=== PATIENT | male | born 1995 | race Caucasian/White ===

== ENCOUNTER 2017-12-24 03:01 | Emergency (ER) | payer SELFPAY ==
[~2017-12-24] VITALS: Ht 185.4 cm; Wt 77.0 kg
[2017-12-24 03:07] VITALS: BP 133/74; PULSE 95; RESP 18; TEMP 98.8; O2SAT 97
--- NOTE | 2017-12-24 04:12 | PD ---
HPI Chief Complaint: Edema Time Seen by Provider: 03:58 Travel History International Travel<30 days: No Contact w/Intl Traveler<30days: No Traveled to known affect area: No History of Present Illness HPI The patient is a 22-year-old male that complains of right ankle and right foot swelling for one day. He states he had a compound fracture of that ankle and foot years ago and he has hardware in the joint. He states that foot is always been fragile but it is never been swollen like this. He denies any injury. 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 In fact, he has not done any work in several months. He states he has a pain of 7/10 and sharp, throbbing pain. PFSH Past Medical History Hx Anticoagulant Therapy: No ADHD: No Autoimmune Disease: No Cancer: No Cardiovascular Problems: No Chemotherapy: No Cerebrovascular Accident: No Developmental Delay: No Diabetes: No Diminished Hearing: No Musculoskeletal: No Neurologic: No Psychiatric: Yes (ADHD) Respiratory: No Immunizations Current: Yes Migraines: No Seizures: No Thyroid Disease: No Ulcer: No Tetanus Vaccination: < 5 Years Influenza Vaccination: No ?: Not Past Surgical History Hysterectomy: No Pacemaker: No Other Surgery: Yes Social History Alcohol Use: No Tobacco Use: Yes (3/4 pack per day) Substance Use: Yes (marijuana) Allergies-Medications (Allergen,Severity, Reaction): Coded Allergies: No Known Allergies (Unverified , 06/21/15) Reported Meds & Prescriptions Reported Meds & Active Scripts Active No Active Prescriptions or Reported Medications Physical Exam Narrative GENERAL: The patient is alert but exhibits slurred speech and appears high as I talk to him. I do not smell alcohol on his breath. His vital signs show heart rate of 95 but are otherwise normal. SKIN: Focused skin assessment warm/dry. There is erythema from the foot to above the ankle in Sock-like distribution. This is only on the right foot. There is associated swelling present. Multiple breaks in the skin are present on the foot and there are a few cuts around the ankles well. HEAD: Atraumatic. Normocephalic. EYES: Pupils equal and round. No scleral icterus. No injection or drainage. ENT: No nasal bleeding or discharge. Mucous membranes pink and moist. NECK: Trachea midline. No JVD. CARDIOVASCULAR: Regular rate and rhythm. No murmur appreciated. RESPIRATORY: No accessory muscle use. Clear to auscultation. Breath sounds equal bilaterally. GASTROINTESTINAL: Abdomen soft, non-tender, nondistended. Hepatic and splenic margins not palpable. MUSCULOSKELETAL: No obvious deformities. No clubbing. No cyanosis. No edema. NEUROLOGICAL: Awake and alert. No obvious cranial nerve deficits. Motor grossly within normal limits. Normal speech. PSYCHIATRIC: The patient appears high on drugs; insight and judgment fair. Data Data Last Documented VS Vital Signs Date Time Temp Pulse Resp B/P (MAP) Pulse Ox O2 Delivery O2 Flow Rate FiO2 12/24/17 03:27 16 97 Room Air 12/24/17 03:07 98.8 95 133/74 (93) Orders Orders Complete Blood Count With Diff (12/24/17 04:02) Basic Metabolic Panel (Bmp) (12/24/17 04:02) Urinalysis - C+S If Indicated (12/24/17 04:02) Drug Screen, Random Urine (12/24/17 04:02) Ankle, Complete ([id number]) (12/24/17 04:02) Foot, Complete ([id number]) (12/24/17 04:02) Labs Laboratory Tests Test 12/24/17 04:17 12/24/17 04:22 White Blood Count 10.2 TH/MM3 Red Blood Count 4.42 MIL/MM3 Hemoglobin 12.8 GM/DL Hematocrit 38.0 % Mean Corpuscular Volume 85.9 FL Mean Corpuscular Hemoglobin 29.0 PG Mean Corpuscular Hemoglobin Concent 33.8 % Red Cell Distribution Width 13.3 % Platelet Count 172 TH/MM3 Mean Platelet Volume 8.3 FL Neutrophils (%) (Auto) 74.3 % Lymphocytes (%) (Auto) 16.5 % Monocytes (%) (Auto) 6.8 % Eosinophils (%) (Auto) 1.7 % Basophils (%) (Auto) 0.7 % Neutrophils # (Auto) 7.5 TH/MM3 Lymphocytes # (Auto) 1.7 TH/MM3 Monocytes # (Auto) 0.7 TH/MM3 Eosinophils # (Auto) 0.2 TH/MM3 Basophils # (Auto) 0.1 TH/MM3 CBC Comment DIFF FINAL Differential Comment Blood Urea Nitrogen 14 MG/DL Creatinine 0.90 MG/DL Random Glucose 70 MG/DL Calcium Level 8.8 MG/DL Sodium Level 129 MEQ/L Potassium Level 3.3 MEQ/L Chloride Level 94 MEQ/L Carbon Dioxide Level 30.0 MEQ/L Anion Gap 5 MEQ/L Estimat Glomerular Filtration Rate 108 ML/MIN Urine Color TOM Urine Turbidity CLEAR Urine pH 6.0 Urine Specific Rhodes 1.024 Urine Protein NEG mg/dL Urine Glucose (UA) NEG mg/dL Urine Ketones NEG mg/dL Urine Occult Blood NEG Urine Nitrite NEG Urine Bilirubin NEG Urine Leukocyte Esterase NEG Urine RBC 0-2 /hpf Urine WBC 0-2 /hpf Urine Squamous Epithelial Cells 0-5 /hpf Urine Bacteria NONE /hpf Microscopic Urinalysis Comment CULT NOT INDICATED Urine Opiates Screen NEG Urine Barbiturates Screen NEG Urine Amphetamines Screen POS Urine Benzodiazepines Screen POS Urine Cocaine Screen NEG Urine Cannabinoids Screen POS MDM Medical Decision Making Medical Screen Exam Complete: Yes Emergency Medical Condition: Yes Medical Record Reviewed: Yes Interpretation(s) X-rays of the right ankle shows soft tissue swelling of the right ankle but no acute fracture. There are remote healed fractures of the tibia and fibular shafts. X-rays of the right foot show no acute bony findings and there is some soft tissue swelling of the hindfoot. The toxicology screen of the urine is positive for amphetamines, benzodiazepines and cannabinoids. It is negative for cocaine, opiates and barbiturates. The urine shows tom color and is normal and culture is not indicated. The basic metabolic profile shows a glucose of 70, sodium 129, potassium 3.3 but is otherwise unremarkable. The CBC is normal except for a hemoglobin of 12.8 and hematocrit of 38.0. Differential Diagnosis Cellulitis right ankle, dermatitis right ankle, fracture right ankle, drug seeking behavior, polysubstance abuse Narrative Course The patient appears to have cellulitis of the right ankle. He will be given Bactrim and doxycycline. Both are for 10 days. He needs to elevate his foot above his heart. He is to follow-up with a primary care physician next week. He has multiple cracks on his foot which may have been port of entry for bacterial invasion of that area. He also has a few cuts on his ankle which also might have allowed bacteria to enter the subcutaneous tissues. The patient also exhibits polysubstance abuse. Particular concerning our the amphetamines which are likely crystal meth. Diagnosis Primary Impression: Cellulitis of right foot Additional Impressions: Cellulitis of right ankle Polysubstance abuse Additional Instructions: Discontinue drugs of abuse. As we discussed, elevate your foot above your heart so that you get good circulation/drainage as we talked about. Both antibiotics are taken one tablet twice daily for 10 days. Med/Other Pt SpecificInfo: Prescription(s) given Scripts Sulfamethoxazole-Trimethoprim (Bactrim DS) 800-160 Mg Tab 1 TAB PO BID for Infection, #20 TAB 0 Refills Prov: Calin Armstrong MD 12/24/17 Doxycycline Hyclate (Doxycycline Hyclate) 100 Mg Cap 100 MG PO BID for Infection, #20 CAP 0 Refills Prov: Calin Armstrong MD 12/24/17 Disposition: 01 DISCHARGE HOME Condition: Stable Calin Armstrong MD Dec 24, 2017 04:12
[2017-12-24 04:27] LABS: AUTOMATED NEUTROPHIL # 7.5 TH/MM3 (1.8-7.7); BASOPHIL # 0.1 TH/MM3 (0-0.2); BASOPHIL % 0.7 % (0.0-2.0); EOSINOPHIL # 0.2 TH/MM3 (0-0.4); EOSINOPHIL % 1.7 % (0.0-4.0); HEMOGLOBIN 12.8 GM/DL (13.0-17.0); LYMPH % 16.5 % (9.0-44.0); LYMPHOCYTE # 1.7 TH/MM3 (1.0-4.8); MEAN CELL VOLUME 85.9 FL (80.0-100.0); MEAN CORPUSCULAR HGB CONC 33.8 % (32.0-36.0); MEAN PLATELET VOLUME 8.3 FL (7.0-11.0); MONO % 6.8 % (0.0-8.0); MONOCYTE # 0.7 TH/MM3 (0-0.9); NEUT % 74.3 % (16.0-70.0); PLATELET COUNT 172 TH/MM3 (150-450); RED BLOOD COUNT 4.42 MIL/MM3 (4.50-5.90); RED CELL DISTRIBUTION WIDTH 13.3 % (11.6-17.2); WHITE BLOOD COUNT 10.2 TH/MM3 (4.0-11.0)
[2017-12-24 04:29] LABS: BILIRUBIN, URINE NEG (NEG); BLOOD, URINE NEG (NEG); GLUCOSE,URINE NEG (NEG); KETONE, URINE NEG (NEG); NITRITE,URINE NEG (NEG); URINE LEUKOCYTE ESTERASE NEG (NEG)
[2017-12-24 04:35] LABS: CALCIUM 8.8 MG/DL (8.5-10.1)
--- NOTE | 2017-12-24 04:38 | RADRPT ---
EXAM DATE/TIME: 12/24/2017 04:07 [facility] COMPARISON: No previous studies available for comparison. INDICATIONS : Entire right ankle pain, swelling, and redness. MEDICAL HISTORY : Previous right tibia/fibula fracture SURGICAL HISTORY : ORIF right tibia/fibula ENCOUNTER: Initial ACUITY: 1 day PAIN SCORE: 6/10 LOCATION: Right ankle FINDINGS: There is soft tissue swelling at the right ankle. Remote fractures of distal tibia and fibula, healed with alpesh fixation of the tibia. No bony destructive changes no acute fracture or dislocation. CONCLUSION: 1. Soft tissue swelling of the right ankle. No acute fracture. Remote healed fractures tibia and fibu lar shafts. Edwin Pa MD on December 24, 2017 at 4:35 Board Certified Radiologist. This report was verified electronically.
[2017-12-24 04:39] LABS: RBC, URINE 0-2 /hpf (0-3); SQUAMOUS EPITHELIAL CELL URINE 0-5 /hpf (0-5); URINE COLOR AMBER (YELLW/STRAW); WBC, URINE 0-2 /hpf (0-5)
[2017-12-24 04:39] LABS: CREATININE 0.9 MG/DL (0.60-1.30)
--- NOTE | 2017-12-24 04:39 | RADRPT ---
EXAM DATE/TIME: 12/24/2017 04:07 [facility] COMPARISON: No previous studies available for comparison. INDICATIONS : Entire right foot pain, swelling, and redness. MEDICAL HISTORY : Previous right tibia/fibula fracture SURGICAL HISTORY : ORIF right tibia/fibula ENCOUNTER: Initial ACUITY: 1 day PAIN SCORE: 6/10 LOCATION: Right foot FINDINGS: Three view examination of the right foot demonstrates no dislocation, or fracture. The tarsal bones appear intact. The interphalangeal and metatarsophalangeal joints are intact. The calcaneus is int act. Bony mineralization is normal. CONCLUSION: 1. No acute bony findings. There is some soft tissue swelling at the hindfoot. Edwin Pa MD on December 24, 2017 at 4:36 Board Certified Radiologist. This report was verified electronically.
[2017-12-24] MEDS ORDERED: DOXY100C PO (05:15)
[2017-12-24] MEDS ORDERED: BACT800T5 PO (05:15)
[2017-12-24] MEDS ORDERED: SULFAMETHOXAZOLE-TRIMETHOPRIM DS 800-160 MG TAB PO ONE (05:30)
[2017-12-24] MEDS ORDERED: DOXYCYCLINE HYCLATE 100 MG CAP PO ONE (05:30)
[2017-12-24 05:34] VITALS: BP 130/90
== END 2017-12-24 05:37 | disposition home or self-care (01) ==
LOC: PHED 03:01
DX: L03.115 Cellulitis of right lower limb (principal); F12.10 Cannabis abuse, uncomplicated; F15.10 Other stimulant abuse, uncomplicated; F19.10 Other psychoactive substance abuse, uncomplicated; F90.9 Attention-deficit hyperactivity disorder, unspecified type
CPT/HCPCS: 73610; 73630; 80048; 80307; 81001; 85025; 99284